=== PATIENT | male | born 1955 ===

== ENCOUNTER → 2023-07-01 08:00 | Outpatient (CLI) | payer OTHER, SELFPAY ==
--- NOTE | ~2023-07-01 | CT_ITS ---
EXAMINATION: CT abdomen pelvis wo/w con DATE: 07/01/2023 08:34 INDICATION: Malignant neoplasm of right kidney status post cryoablation. TECHNIQUE: Computed tomography (CT) of the abdomen and pelvis was performed without and with 100 mL O mnipaque 350 intravenous contrast. Automated exposure control and iterative reconstruction technique were employed. The dose-length product was 515.18 mGy-cm. COMPARISON: None. FINDINGS: The visualized portions of the lung bases demonstrate emphysema. No pleural effusion. The h eart size is normal. No pericardial effusion. The liver and gallbladder are normal. Calcifications in the spleen are consistent with old granulomatous disease. The pancreas, adrenal glands, and left kid oriana are normal. There is a 5 mm cyst in right kidney. There are changes of ablation in right kidney u pper pole. There is calcified atherosclerosis of the aorta and many of the other arteries. There is d iffuse bladder wall thickening, likely secondary to chronic outlet obstruction from the moderately en larged prostate. There are no dilated loops of bowel. The appendix is not visualized. There are no pa thologically enlarged lymph nodes. There is no free intraperitoneal fluid. There is dextroscoliosis o f lumbar spine. There is severe lumbar spondylosis. IMPRESSION: 1. Ablation changes of right kidney. No recurrent or residual neoplasm. Reviewed, dictated and finalized at location E.
[2023-07-01 08:22] LABS: Estimated Glomerular Filt Rate > 60
== END ==
PROVIDERS: PCP Urology; Visit Provider Urology
DX: C64.1 Malignant neoplasm of right kidney, except renal pelvis (principal)
CPT/HCPCS: 74178; Q9967